=== PATIENT | female | born 1950 | race Caucasian/White ===

== ENCOUNTER → 2016-12-07 | Outpatient (CLI) | payer OTHER, MEDICARE ==
--- NOTE | 2016-12-07 13:24 | DI ---
HISTORY: Swelling tip of the third digit. No known trauma. FINDINGS: Examination reveals some soft tissue swelling especially of the DIP joint of the middle f [place] with what appears to be old fracture deformity of the base of the distal phalanx of the middle finger. There is no evidence of recent fracture or dislocation. IMPRESSION: 1. Soft tissue swelling. 2. Apparent old fracture deformity base of the distal phalanx of the middle finger.
[2016-12-08 15:17] LABS: RHEUMATOID FACTOR <15 IU/mL (<15)
== END ==
LOC: LAB 12:13
PROVIDERS: ATTEND Obstetrics & Gynecology Gynecology
DX: M06.342 Rheumatoid nodule, left hand (principal); M06.341 Rheumatoid nodule, right hand; M79.89 Other specified soft tissue disorders
CPT/HCPCS: 36415; 73140; 86038; 86200; 86431

== ENCOUNTER → 2017-01-04 | Outpatient (CLI) | payer OTHER, MEDICARE ==
--- NOTE | 2017-01-04 11:55 | EKG ---
[address] [address] Measurements Intervals [place] Rate: 56 P: 62 OR: 222 QRS: 2 QRSD: 102 T: 55 QT: 425 QTc: 416 Interpretive Statements SINUS BRADYCARDIA WITH FIRST DEGREE AV BLOC RIGHT VENTRICULAR CONDUCTION DELAY No previous ECG available for comparison Electronically Signed On 01-04-17 17:32:12 MDT by Moises Willson [email or web address]
[2017-01-04 12:26] LABS: BLOOD UREA NITROGEN 22 mg/dL (7-22); BUN/CREATININE RATIO 36.66 (6-20); CALCIUM 9.7 mg/dL (8.7-10.7); EST GLOMERULAR FILTRATION > 60 (>60 ml/min/1.73m(2)); SERUM ALBUMIN 4.2 g/dL (3.5-4.8)
== END ==
LOC: EKG 11:36
PROVIDERS: ATTEND Orthopaedic Surgery
DX: M19.041 Primary osteoarthritis, right hand (principal); I10 Essential (primary) hypertension
CPT/HCPCS: 36415; 80053; 87641; 93005; 93010